=== PATIENT | female | born 1995 | race Caucasian/White ===

== ENCOUNTER 2018-04-20 08:41 | Emergency (ER) | payer MEDICAID ==
[~2018-04-20] VITALS: Ht 160 cm; Wt 68.0 kg
[2018-04-20 08:41] VITALS: BP_SYST 127
[~2018-04-20 08:41] MED LIST: PREN-89 PO
[2018-04-20 09:40] VITALS: BP_SYST 120
== END 2018-04-20 09:40 | disposition home or self-care (01) ==
LOC: SED 08:41
DX: J02.8 Acute pharyngitis due to other specified organisms (principal); B97.89 Other viral agents as the cause of diseases classified elsewhere
CPT/HCPCS: 99282

== ENCOUNTER 2018-05-05 21:48 | Emergency (ER) | payer MEDICAID ==
[~2018-05-05] VITALS: Ht 160 cm; Wt 69.4 kg
[2018-05-05 21:54] VITALS: BP_SYST 113
[2018-05-05 22:50] LABS: BILIRUBIN,URINE NEGATIVE (NEGATIVE); BLOOD, URINE 2+ (NEGATIVE); CLARITY/URINE CLEAR (CLEAR); COLOR,URINE YELLOW (YELLOW); GLUCOSE,URINE NEGATIVE (NEGATIVE); KETONES,URINE NEGATIVE (NEGATIVE); LEUKOCYTE ESTERASE ,URINE TRACE (NEGATIVE); NITRITE, URINE NEGATIVE (NEGATIVE); PROTEIN URINE NEGATIVE (NEGATIVE); UROBILINOGEN,URINE 0.2 (0.2-1.0)
[2018-05-05 22:59] LABS: BASOPHILS # (AUTO) 0.1 K/uL (0.0-0.2); BASOPHILS % (AUTO) 0.9 % (0.0-2.0); EOSINOPHILS % (AUTO) 0.3 % (0.0-4.0); HEMATOCRIT 36.8 % (36-48); HEMOGLOBIN 12.5 g/dL (12.0-16.0); LYMPHOCYTES # (AUTO) 2.5 K/uL (1.0-5.5); MEAN CORPUSCULAR HEMOGLOBIN 30 pg (27-31); MEAN CORPUSCULAR HGB CONC 34 % (32-36); MEAN CORPUSCULAR VOLUME 88 fL (79.0-98.0); MONOCYTES # (AUTO) 0.7 K/uL (0.0-1.0); MONOCYTES % (AUTO) 4.3 % (1.7-9.3); NEUTROPHILS # (AUTO) 12.3 K/uL (1.8-7.7); NEUTROPHILS % (AUTO) 78.5 % (40.0-70.0); PLATELET COUNT (AUTO) 214 K/uL (130-430); RED BLOOD CELL COUNT(AUTO) 4.18 MIL/uL (4.2-6.2); WHITE BLOOD COUNT (AUTO) 15.6 K/uL (4.8-10.8)
[2018-05-05 23:05] LABS: BACTERIA,URINE MODERATE /HPF (None Seen); MUCUS,URINE 1+ /LPF (None Seen); RBC,URINE 20-50 /HPF (0-3)
[2018-05-05 23:58] VITALS: BP_SYST 119
== END 2018-05-05 23:58 | disposition home or self-care (01) ==
LOC: SED 21:48
DX: O20.0 Threatened abortion (principal); Z3A.17 17 weeks gestation of pregnancy
CPT/HCPCS: 36415; 76801; 81000-TC; 81025; 85025; 87086; 99285

== ENCOUNTER 2019-11-24 22:40 | Emergency (ER) | payer MEDICAID ==
[~2019-11-24] VITALS: Ht 160 cm; Wt 88.5 kg
[2019-11-24 22:45] VITALS: BP_SYST 110
--- NOTE | 2019-11-24 22:45 | NUR ---
Patient triaged and placed in waiting room. VSS and patient appears in no acute distress at this time. Accompanied by FAM MEMBER, awaiting available bed, and MD notified of need for MSE.
--- NOTE | 2019-11-24 23:58 | NUR ---
Patient to ER bed 6 to gown for evaluation. Side rails up. Report given to JAYDON CALLE.
--- NOTE | 2019-11-25 01:00 | NUR ---
Pt ambulates into ER with c/o toe nail pain. Pt states Right Big toe nail is painful when she walks. Pt states pain is 4/10. Pt states pain when walking. Upon inspection, right big toe nail bed has red discoloration with mild swelling. Will continue to monitor.
--- NOTE | 2019-11-25 01:07 | NUR ---
ER Dr. Delgadillo at bedside examining patient.
[2019-11-25 01:12] VITALS: BP_SYST 112
--- NOTE | 2019-11-25 01:12 | NUR ---
Patient given written and verbal discharge instructions and verbalizes understanding. ER MD Delgadillo discussed with patient the results and treatment provided. Patient in stable condition. ID arm band removed. Rx of keflex given. Patient educated on pain management and to follow up with PMD. Pain Scale 1/10. Opportunity for questions provided and answered. Medication side effect fact sheet provided.
== END 2019-11-25 01:12 | disposition home or self-care (01) ==
LOC: SED 22:40
DX: L60.0 Ingrowing nail (principal); Z79.899 Other long term (current) drug therapy
CPT/HCPCS: 99283